=== PATIENT | female | born 1990 | race Caucasian/White ===

== ENCOUNTER 2016-09-27 13:03 | Emergency (ER) | payer OTHER ==
[~2016-09-27] VITALS: Ht 165.1 cm; Wt 68.0 kg
[~2016-09-27 13:03] MED LIST: DICY1TAB26 PO; IBUP600 PO; RANI150 PO
[2016-09-27 13:04] VITALS: BP 130/80; PULSE 70; RESP 16; TEMP 97.9; O2SAT 100
--- NOTE | 2016-09-27 13:16 | PD ---
Physical Exam Time Seen by Provider: 13:14 Narrative 25yo F c/o lower abd pain x 10days. Nausea w/o vomiting. Denies vag dc, dysuria. Chills at night; otherwise denies fever. LMP September 07. Nexplanon taken out yesterday. Patient seen in triage. VS reviewed. Awaiting bed placement. Data Data Last Documented VS Vital Signs Date Time Temp Pulse Resp B/P Pulse Ox O2 Delivery O2 Flow Rate FiO2 09/27/16 13:04 97.9 70 16 130/80 100 Room Air MDM Supervised Visit with AMBROSE: Olga Corrales September 27, 2016 13:16
[2016-09-27] MEDS ORDERED: SODIUM CHLOR 0.9% 1000 ML INJ 1,000 ML IV SCH (13:54)
[2016-09-27] MEDS ORDERED: ONDANSETRON HCL 4 MG/2 ML VIAL IVP ONE (14:00)
[2016-09-27] MEDS ORDERED: KETOROLAC TROMETHAMINE 30 MG/ML (IVP) VIAL IVP ONE (14:00)
[2016-09-27] MEDS ORDERED: SODIUM CHLORIDE 0.9% FLUSH 10 ML FLUSH IV FLUSH PRN (14:00)
--- NOTE | 2016-09-27 14:02 | PD ---
HPI Chief Complaint: Abdominal Pain Time Seen by Provider: 13:29 Travel History International Travel<30 days: No Contact w/Intl Traveler<30days: No Traveled to known affect area: No History of Present Illness HPI Is a 25-year-old woman who presents to the emergent [place] of lower abdominal pain. Symptoms been ongoing for about 10 days or so. She's had nausea with it. No vomiting. She's had trouble with ovarian cysts in pain during sex in the past. She's not had persistent pain like this in the past. She talked [facility] who put her on antibiotics for possible UTI. She states this hasn't really made any difference. She is not really having any urinary symptoms such as dysuria or frequency. She does not have any vaginal discharge or vaginal bleeding. Last menstrual cycle was September 07. She sexually active with one male partner. She is no history of abdominal surgeries. She does feel like her appetite been decreased. History Past Medical History Narrative Medical Ovarian cysts LMP: 09/07/16 Social History Alcohol Use: Yes (occasionally) Tobacco Use: Yes Allergies-Medications (Allergen,Severity, Reaction): Coded Allergies: No Known Allergies (Unverified , 09/27/16) Reported Meds & Prescriptions Reported Meds & Active Scripts Active No Active Prescriptions or Reported Medications Review of Systems Except as stated in HPI: all other systems reviewed are Neg Physical Exam Narrative GENERAL: Well-appearing 25 year-old woman, no acute distress. SKIN: Focused skin assessment warm/dry. CARDIOVASCULAR: Regular rate and rhythm. No murmur appreciated. RESPIRATORY: No accessory muscle use. Clear to auscultation. Breath sounds equal bilaterally. GASTROINTESTINAL: Abdomen soft, she has moderate right lower quadrant tenderness to palpation. No rebound. Some voluntary guarding. MUSCULOSKELETAL: No obvious deformities. Edema. NEUROLOGICAL: Awake and alert. No obvious cranial nerve deficits. Motor grossly within normal limits. Normal speech. PELVIC: Normal external female genitalia. The for amount of white vaginal discharge in the vaginal vault. Cervix is grossly normal. She has moderate diffuse cervical motion tenderness. No palpable adnexal masses or uterine enlargement. Diffuse pelvic tenderness. Data Data Last Documented VS Vital Signs Date Time Temp Pulse Resp B/P Pulse Ox O2 Delivery O2 Flow Rate FiO2 09/27/16 14:10 99 Room Air 09/27/16 13:04 97.9 70 16 130/80 Orders Complete Blood Count With Diff (09/27/16 13:54) Comprehensive Metabolic Panel (09/27/16 13:54) Lipase (09/27/16 13:54) Urinalysis - C+S If Indicated (09/27/16 13:54) Ct Abd/Pel W Iv Contrast(Rout) (09/27/16 13:54) Iv Access Insert/Monitor (09/27/16 13:54) Ecg Monitoring (09/27/16 13:54) Oximetry (09/27/16 13:54) Ondansetron Inj (Zofran Inj) (09/27/16 14:00) Sodium Chlor 0.9% 1000 Ml Inj (Ns 1000 M (09/27/16 13:54) Sodium Chloride 0.9% Flush (Ns Flush) (09/27/16 14:00) Ketorolac Inj (Toradol Inj) (09/27/16 14:00) Ed Urine Pregnancytest Poc (09/27/16 13:54) Gc And Chlamydia Pcr (09/27/16 13:54) Wet Prep Profile (09/27/16 13:54) Oral Contrast - Adult (09/27/16 14:14) Diatrizoate Liq ( Gastroview Liq) (09/27/16 14:43) Iohexol 350 Inj (Omnipaque 350 Inj) (09/27/16 15:58) Labs Laboratory Tests Test 09/27/16 09/27/16 14:08 14:39 White Blood Count 11.8 TH/MM3 Red Blood Count 4.46 MIL/MM3 Hemoglobin 13.5 GM/DL Hematocrit 40.1 % Mean Corpuscular Volume 90.0 FL Mean Corpuscular Hemoglobin 30.4 PG Mean Corpuscular Hemoglobin 33.7 % Concent Red Cell Distribution Width 12.9 % Platelet Count 232 TH/MM3 Mean Platelet Volume 9.3 FL Neutrophils (%) (Auto) 72.5 % Lymphocytes (%) (Auto) 19.6 % Monocytes (%) (Auto) 6.3 % Eosinophils (%) (Auto) 1.1 % Basophils (%) (Auto) 0.5 % Neutrophils # (Auto) 8.6 TH/MM3 Lymphocytes # (Auto) 2.3 TH/MM3 Monocytes # (Auto) 0.7 TH/MM3 Eosinophils # (Auto) 0.1 TH/MM3 Basophils # (Auto) 0.1 TH/MM3 CBC Comment DIFF FINAL Differential Comment Urine Color LIGHT-YELLOW Urine Turbidity CLEAR Urine pH 7.0 Urine Specific [place] 1.004 Urine Protein NEG mg/dL Urine Glucose (UA) NEG mg/dL Urine Ketones NEG mg/dL Urine Occult Blood NEG Urine Nitrite NEG Urine Bilirubin NEG Urine Urobilinogen LESS THAN 2.0 MG/DL Urine Leukocyte Esterase NEG Urine Squamous Epithelial 1 /hpf Cells Urine Bacteria RARE /hpf Microscopic Urinalysis Comment CULT NOT INDICATED Sodium Level 140 MEQ/L Potassium Level 3.8 MEQ/L Chloride Level 106 MEQ/L Carbon Dioxide Level 27.2 MEQ/L Anion Gap 7 MEQ/L Blood Urea Nitrogen 12 MG/DL Creatinine 0.88 MG/DL Estimat Glomerular Filtration 78 ML/MIN Rate Random Glucose 76 MG/DL Calcium Level 8.8 MG/DL Total Bilirubin 0.6 MG/DL Aspartate Amino Transf 21 U/L (AST/SGOT) Alanine Aminotransferase 17 U/L (ALT/SGPT) Alkaline Phosphatase 75 U/L Total Protein 6.9 GM/DL Albumin 3.8 GM/DL Lipase 110 U/L Clue Cells (Wet Prep) NONE SEEN Vaginal Trichomonas (Wet Prep) NONE SEEN Vaginal Yeast (Wet Prep) PRESENT MDM Medical Decision Making Medical Screen Exam Complete: Yes Emergency Medical Condition: Yes Interpretation(s) LABS: CBC remarkable for mild leukocytosis. CMP is unremarkable. Lipase is normal. UA is unremarkable. Wet prep positive for yeast GC chlamydia pending 5.2 cm ovarian cyst. Mild diffuse dilatation of the pancreatic duct. Differential Diagnosis Ovarian cyst, endometriosis, appendicitis, renal lithiasis, Crohn's disease, UTI , PID, ectopic , other Narrative Course Medical decision making INITIAL: Is a 25-year-old woman who presents to the emergency department complaining of 10 days of right lower quadrant abdominal pain. She has moderate tenderness on exam with some voluntary guarding. 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 We'll check for . Given her appetite changes, significant tenderness, she could be a risk for subacute appendicitis or appendicitis or perforation. We'll check CT imaging. Pelvic exam. Pain control. Outpatient follow-up with gynecology. Diagnosis Primary Impression: Ovarian cyst Additional Instructions: Take Naprosyn as needed for pain. Use Zofran if needed for nausea or vomiting. Follow up with her primary doctor in the next 2-4 days. Return to the emergency department for any new or worsening symptoms. Med/Other Pt SpecificInfo: Prescription(s) given Scripts Ondansetron Odt (Zofran Odt)4 Mg Tab4 Mg SL Q8HR PRN (Nausea/Vomiting) #15 TAB May substitute non-ODT form. Prov:Dwain Cunha MD 09/27/16 Naproxen (Naprosyn)500 Mg [id number] Mg PO BID PRN (PAIN SCALE 1 TO 10) #20 TAB Prov:Dwain Cunha MD 09/27/16 Disposition: 01 DISCHARGE HOME Condition: Stable Dwain Cunha MD September 27, 2016 14:02
[2016-09-27 14:10] VITALS: O2SAT 99
[2016-09-27 14:27] LABS: AUTOMATED NEUTROPHIL # 8.6 TH/MM3 (1.8-7.7); BASOPHIL # 0.1 TH/MM3 (0-0.2); BASOPHIL % 0.5 % (0.0-2.0); EOSINOPHIL # 0.1 TH/MM3 (0-0.4); EOSINOPHIL % 1.1 % (0.0-4.0); HEMATOCRIT 40.1 % (35.0-46.0); HEMO FLAGS DIFF FINAL; LYMPH % 19.6 % (9.0-44.0); LYMPHOCYTE # 2.3 TH/MM3 (1.0-4.8); MEAN CORPUSCULAR HEMOGLOBIN 30.4 PG (27.0-34.0); MEAN CORPUSCULAR HGB CONC 33.7 % (32.0-36.0); MONO % 6.3 % (0.0-8.0); NEUT % 72.5 % (16.0-70.0); PLATELET COUNT 232 TH/MM3 (150-450); RED BLOOD COUNT 4.46 MIL/MM3 (4.00-5.30); RED CELL DISTRIBUTION WIDTH 12.9 % (11.6-17.2); WHITE BLOOD COUNT 11.8 TH/MM3 (4.0-11.0)
[2016-09-27 14:35] LABS: BACTERIA, URINE RARE /hpf; BLOOD, URINE NEG (NEG); COMMENT (UR) CULT NOT INDICATED; CULTURE IF INDICATED CULT NOT INDICATED; GLUCOSE,URINE NEG (NEG); KETONE, URINE NEG (NEG); NITRITE,URINE NEG (NEG); SQUAMOUS EPITHELIAL CELL URINE 1 /hpf (0-5); URINE COLOR LIGHT-YELLOW (YELLW/STRAW)
[2016-09-27] MEDS ORDERED: DIATRIZOATE MEGLUM/DIATRIZOATE SOD 9 ML CUP ONE (14:43)
[2016-09-27 14:48] LABS: ALT (GPT) 17 U/L (10-53); ANION GAP 7 MEQ/L (5-15); AST (GOT) 21 U/L (15-37); BICARBONATE 27.2 MEQ/L (21.0-32.0); BLOOD UREA NITROGEN 12 MG/DL (7-18); CHLORIDE 106 MEQ/L (98-107); GLOMERULAR FILTRATION RATE 78 ML/MIN (>89); POTASSIUM 3.8 MEQ/L (3.5-5.1); SODIUM (NA) 140 MEQ/L (136-145)
[2016-09-27 14:49] LABS: ALKALINE PHOSPHATASE 75 U/L (45-117); TOTAL BILIRUBIN ADULT 0.6 MG/DL (0.2-1.0)
[2016-09-27] MEDS ORDERED: IOHEXOL 350 MG/ML 10 ML VIAL (for RAD DIAG) IV ONE (15:58)
--- NOTE | 2016-09-27 16:02 | RADRPT ---
EXAM DATE/TIME: 09/27/2016 15:44 [facility] COMPARISON: CT ABDOMEN & PELVIS W/O CONTRAST, July 20, 2015, 1:56. INDICATIONS : Diffuse lower abdomen pain for 10 days. IV CONTRAST: 97 cc Omnipaque 350 (iohexol) IV ORAL CONTRAST: Prescribed oral contrast ingested. RADIATION DOSE: 9.96 CTDIvol (mGy) MEDICAL HISTORY : Ovarian cyst, rapid weight gain. SURGICAL HISTORY : None. ENCOUNTER: Initial ACUITY: 2 weeks PAIN SCALE: 6/10 LOCATION: Bilateral lower quadrant TECHNIQUE: Volumetric scanning of the abdomen and pelvis was performed. Using automated exposure control and ad justment of the mA and/or kV according to patient size, radiation dose was kept as low as reasonably achievable to obtain optimal diagnostic quality images. FINDINGS: LOWER LUNGS: The visualized lower lungs are clear. LIVER: Homogeneous density without lesion. There is no dilation of the biliary tree. No calcified gallston es. SPLEEN: Normal size without lesion. PANCREAS: There is mild diffuse dilatation of the pancreatic duct up to 3.8 mm. KIDNEYS: Normal in size and shape. There is no mass, stone or hydronephrosis. ADRENAL GLANDS: Within normal limits. VASCULAR: There is no aortic aneurysm. BOWEL/MESENTERY: The stomach, small bowel, and colon demonstrate no acute abnormality. There is no free intraperitone al air or fluid. ABDOMINAL WALL: Within normal limits. RETROPERITONEUM: There is no lymphadenopathy. BLADDER: No wall thickening or mass. REPRODUCTIVE: Circumscribed hypodense mass at the level of the right ovary measuring 5.2 x 4.4 cm in AP and transve rse dimension characteristic of a cyst. INGUINAL: There is no lymphadenopathy or hernia. MUSCULOSKELETAL: Within normal limits for patient age. CONCLUSION: 1. 5.2 cm right ovarian cyst. 2. Mild diffuse dilatation of the pancreatic duct as above. Edy Butsillos MD on September 27, 2016 at 15:59 Board Certified Radiologist. This report was verified electronically.
[2016-09-27] MEDS ORDERED: NAPR500 PO (16:21)
[2016-09-27] MEDS ORDERED: ZOFR4TAB3 SL (16:21)
[2016-09-27 16:24] VITALS: BP 130/66; PULSE 86; RESP 16; O2SAT 99
[2016-09-27 18:24] LABS: CHLAMYDIA PCR NOT DETECTED (NOT DETECT); NEISSERIA PCR NOT DETECTED (NOT DETECT)
== END 2016-09-27 16:30 | disposition home or self-care (01) ==
LOC: NEPD 13:03
DX: N83.201 Unspecified ovarian cyst, right side (principal); R11.0 Nausea; Z72.0 Tobacco use; Z87.42 Personal history of other diseases of the female genital tract
CPT/HCPCS: 74177; 80053; 81001; 83690; 84703; 85025; 87210; 87491; 87591; 96361; 96374; 96375; 99285; J1885; J2405; J7030; Q9963; Q9967